=== PATIENT | male | born 1960 | race Caucasian/White ===

== ENCOUNTER 2018-10-08 15:30 | Outpatient (CLI) | payer OTHER | END 2018-10-08 23:59 | disposition home or self-care (01) | LOC: LAB.WCP 15:30 | PROVIDERS: ATTEND Nurse Practitioner | DX: L03.90 Cellulitis, unspecified (principal); L02.91 Cutaneous abscess, unspecified | CPT/HCPCS: 87070; 87075; 87077; 87205 ==

== ENCOUNTER 2018-11-11 10:50 | Outpatient (CLI) | payer OTHER ==
[2018-11-11 19:08] LABS: HB2 TOTAL 14.8 g/dL; HEMOGLOBIN A1C 1.22 g/dL; HEMOGLOBIN A1C % 9.7 % (4.6-6.2)
[2018-11-11 19:13] LABS: ALBUMIN 3.8 g/dL (3.2-5.5); ALBUMIN/GLOBULIN RATIO 1.2 (1.0-2.2); ALKALINE PHOSPHATASE 99 IU/L (42-121); ALT ALANINE AMINOTRANSFERASE 50 IU/L (10-60); AST ASPARTATE AMINOTRANSFERASE 18 IU/L (10-42); BUN - BLOOD UREA NITROGEN 11 mg/dL (6-20); CALCIUM 8.8 mg/dL (8.5-10.3); CARBON DIOXIDE - CO2 28 mmol/L (21-32); CHLORIDE 100 mmol/L (101-111); CHOL/HDL RATIO 2.1 (<5.0); CHOLESTEROL 127 mg/dL; CREATININE 0.7 mg/dL (0.6-1.2); GFR - MDRD 115 (>89); GLUCOSE 177 mg/dL (70-100); HDL CHOLESTEROL 60 mg/dL; SODIUM 137 mmol/L (135-145)
[2018-11-11 19:36] LABS: LDL CHOLESTEROL,DIRECT 67 mg/dL; LDLD/HDL RATIO 1.1 (<3.6)
== END 2018-11-11 10:51 | disposition home or self-care (01) ==
LOC: LAB.WCP 10:50
PROVIDERS: ATTEND Family Medicine
DX: E11.9 Type 2 diabetes mellitus without complications (principal)
CPT/HCPCS: 36415; 80053; 80061; 83036; 83721

== ENCOUNTER 2020-06-02 06:54 | Day surgery (SDC) | payer OTHER ==
[2020-06-02] MEDS ORDERED: LACTATED RINGERS 1,000 ML IV ONE (07:10)
[2020-06-02] MEDS ORDERED: fentaNYL 250 MCG/5 ML VIAL IVP ONE (08:26)
[2020-06-02] MEDS ORDERED: MIDAZOLAM 2 MG/2 ML VIAL IVP ONE (08:26)
[2020-06-02 09:26] VITALS: BP 110/84
== END 2020-06-02 06:55 | disposition home or self-care (01) ==
LOC: SDS 06:54
PROVIDERS: ATTEND Surgery
DX: Z12.11 Encounter for screening for malignant neoplasm of colon (principal); K64.1 Second degree hemorrhoids; K57.30 Diverticulosis of large intestine without perforation or abscess without bleeding; K64.4 Residual hemorrhoidal skin tags; E11.9 Type 2 diabetes mellitus without complications; G47.30 Sleep apnea, unspecified; I10 Essential (primary) hypertension; E66.9 Obesity, unspecified; Z68.32 Body mass index [BMI] 32.0-32.9, adult
CPT/HCPCS: 45378; J3010; J7120